=== PATIENT | male | born 1985 | race African-American/Black ===

== ENCOUNTER 2020-03-16 07:57 | Emergency (ER) | payer SELFPAY ==
[2020-03-16] MEDS ORDERED: Cephalexin 500 MG CAP ONE (08:21)
== END 2020-03-16 08:27 | disposition home or self-care (01) ==
LOC: MADERS 07:57
DX: L03.116 Cellulitis of left lower limb (principal); I10 Essential (primary) hypertension; F17.210 Nicotine dependence, cigarettes, uncomplicated
CPT/HCPCS: 99283

== ENCOUNTER 2020-05-05 12:58 | Outpatient (CLI) | payer OTHER | END 2020-05-05 12:59 | disposition home or self-care (01) | LOC: MADLAB 12:58 | DX: Z51.81 Encounter for therapeutic drug level monitoring (principal); Z79.899 Other long term (current) drug therapy | CPT/HCPCS: 99001 ==

== ENCOUNTER 2021-04-26 17:33 | Emergency (ER) | payer OTHER, SELFPAY | END 2021-04-26 18:12 | disposition home or self-care (01) | LOC: MADERS 17:33 | DX: L03.116 Cellulitis of left lower limb (principal); L97.529 Non-pressure chronic ulcer of other part of left foot with unspecified severity; E66.9 Obesity, unspecified; F17.210 Nicotine dependence, cigarettes, uncomplicated; I10 Essential (primary) hypertension | CPT/HCPCS: 99283 ==